=== PATIENT | female | born 1970 | race Caucasian/White ===

== ENCOUNTER 2021-02-05 15:50 | Observation (INO) | payer MEDICAID ==
[2021-02-05] MEDS ORDERED: HYDROmorphone 1 MG/ML CARPUJECT IVP STA ×2 (16:16→19:08)
[2021-02-05] MEDS ORDERED: ONDANSETRON 4 MG/2 ML VIAL IVP STA (16:16)
[2021-02-05] MEDS ORDERED: SODIUM CHLORIDE 0.9% 1,000 ML IV STA (16:16)
[2021-02-05] MEDS ORDERED: IOVERSOL 320 100 ML VIAL IVP ONE ×2 (16:19→21:07)
--- NOTE | 2021-02-05 16:22 | ED Physician Documentation ---
History of Present Illness - Stated complaint Stated Complaint: ABD PX, BACK PX - Chief complaint Chief Complaint: Abd Pain - Additonal information Additional information: 50-year-old female presents the emergency department for evaluation of vomiting and abdominal pain. Began about 48 hours ago when she was traveling back to the [place] from [place]. She reports that she was running through the airports looking for bathrooms to vomit and. Over the last 12 hours the vomiting has improved but she reports labor-like cramping in her upper abdomen. She denies dysuria urgency or frequency. No hematuria. Denies sick contacts or similar illness and others. Denies any pertinent past medical or surgical history. Review of Systems Constitutional: denies: Fever, Chills Eyes: reports: Reviewed and negative Ears: reports: Reviewed and negative Nose: reports: Reviewed and negative Throat: reports: Dental pain / toothache Cardiac: reports: Reviewed and negative Respiratory: reports: Reviewed and negative GI: reports: Abdominal Pain, Nausea, Vomiting. denies: Constipation, Diarrhea : denies: Dysuria, Frequency, Hesitancy Skin: denies: Rash, Lesions Musculoskeletal: reports: Reviewed and negative Neurologic: reports: Reviewed and negative PD PAST MEDICAL HISTORY - Past Medical History Past Medical History: Yes Cardiovascular: None Respiratory: None Neuro: None Endocrine/Autoimmune: None GI: None LOG MANAGER: None HEENT: None Psych: Depression, Anxiety Musculoskeletal: None Derm: None - Past Surgical History Past Surgical History: Yes /LOG MANAGER: Dilation and currettage - Present Medications Home Medications: Ambulatory Orders Medication Instructions Recorded Confirmed PARoxetine HCl [Paxil] 40 mg ORAL DAILY 03/01/14 08/05/16 Amoxicillin 500 mg PO Q8H #30 capsule 08/05/16 Oxycodone HCl/Acetaminophen 1 each PO Q6HR PRN #15 tablet 08/05/16 [Percocet 5-325 mg Tablet] predniSONE [Prednisone] 40 mg PO DAILY #10 tablet 08/05/16 - Allergies Allergies/Adverse Reactions: Allergies Allergy/AdvReac Type Severity Reaction Status Date / Time Sulfa (Sulfonamide Allergy Mild Hives Verified 02/05/21 16:08 Antibiotics) - Social History Does the pt smoke?: Yes Smoking Status: Current every day smoker Does the pt drink ETOH?: Yes Does the pt have substance abuse?: No - Immunizations Immunizations are current?: Yes PD ED PE EXPANDED - General General: Alert, Lethargic - Neck Neck: Supple w/out meningeal sx. No: No tenderness - Cardiac Cardiac: Regular Rate, Radial strong equal, Pedal strong equal, Cap refill < 2 sec. No: Murmur Present - Respiratory Respiratory: Clear to ausultation katharine. No: Distress, Labored - Abdomen Abdomen: Normal Bowel sounds, Tender to palpation (Diffuse nonfocal tenderness without guarding or rebound.) - Derm Derm: Normal color, Warm and dry - Extremities Extremities: Normal. No: Deformity, Tenderness - Neuro Neuro: Alert and Oriented X 3, CNII-XII intact - GCS Eye Opening: Spontaneous Motor: Obeys Commands Verbal: Oriented Total: 15 Results - Vitals Vitals: Vital Signs - 24 hr 02/05/21 02/05/21 02/05/21 16:02 16:07 18:07 Temperature 36.6 C Heart Rate 81 82 84 Respiratory 16 16 16 Rate Blood Pressure 135/83 H 132/76 H 129/77 O2 Saturation 100 100 99 02/05/21 19:27 Temperature 36.1 C L Heart Rate 71 Respiratory 16 Rate Blood Pressure 141/79 H O2 Saturation 98 Oxygen O2 Source Room air - Labs Labs: Laboratory Tests 02/05/21 02/05/21 02/05/21 16:25 16:25 16:25 WBC 12.4 H RBC 5.17 Hgb 14.4 Hct 45.3 MCV 87.6 MCH 27.9 MCHC 31.8 L RDW 14.4 Plt Count 343 MPV 9.1 Neut # (Auto) 9.3 H Lymph # (Auto) 2.0 Benson # (Auto) 1.0 Eos # (Auto) 0.1 Baso # (Auto) 0.1 Absolute Nucleated RBC 0.00 Nucleated RBC % 0.0 Sodium 139 Potassium 3.2 L Chloride 102 Carbon Dioxide 28 Anion Gap 9.0 BUN 19 Creatinine 0.8 Estimated GFR (MDRD) 77 L Glucose 132 H Calcium 9.7 Total Bilirubin 0.9 AST 19 ALT 23 Alkaline Phosphatase 67 Total Protein 8.8 H Albumin 4.4 Globulin 4.4 H Albumin/Globulin Ratio 1.0 Lipase 66 H Urine Color YELLOW Urine Clarity CLEAR Urine pH 6.0 Ur Specific Richardson >=1.030 H Urine Protein TRACE Urine Glucose (UA) NEGATIVE Urine Ketones TRACE Urine Occult Blood SMALL H Urine Nitrite NEGATIVE Urine Bilirubin NEGATIVE Urine Urobilinogen 0.2 (NORMAL) Ur Leukocyte Esterase SMALL H Urine RBC 0-5 Urine WBC 4-5 Ur Squamous Epith Cells FEW Squamous Amorphous Sediment Moderate Urine Bacteria Rare Ur Microscopic Review INDICATED Urine Culture Comments INDICATED - Rads (name of study) abd pel Radiology: Final report received (Lithiasis with possible gallbladder wall thickening. Consider ultrasound correlation.) PD MEDICAL DECISION MAKING - ED course Complexity details: reviewed results, re-evaluated patient, considered differential, d/w patient, d/w family ED course: 50-year-old female presents the emergency department for evaluation of 2 days of nausea and vomiting as well as generalized abdominal pain. She was noted on screening labs to have a moderate leukocytosis but no significant kidney injury or transaminitis. CT of the abdomen suggested cholelithiasis possibly Siobhan cystitis. Bedside abdominal ultrasound did show Siobhan lithiasis with an impacted gallbladder full of stones. There is no biliary obstruction. This patient was initially given Zofran which helped with the nausea and was followed with 2 doses of Dilaudid which did not markedly improve her pain. I d iscussed this case extensively on the phone with on-call surgeon Dr. Juan J Dugan. Patient will be brought into the hospital on an observation status for possible cholecystectomy in the next 24 to 48 hours. Patient and her mother at bedside are aware of the plan and agree to admission. Departure - Departure Disposition: ED Place in Observation Clinical Impression: Cholecystitis with cholelithiasis Qualifiers: Cholelithiasis location: gallbladder Cholecystitis acuity: acute Biliary obstruction: without biliary obstruction Qualified Code(s): K80.00 - Calculus of gallbladder with acute cholecystitis without obstruction
--- OUTSIDE RECORDS SUMMARY | 2021-02-05 16:28 | EXTERNAL MEDICAL SUMMARY RPT | Continuity of Care Document ---
:1970 Demographics Phone Unavailable Preferred Language Unknown Marital Status Unknown Mosque Affiliation Unknown Race Unknown Ethnic Group Unknown Author Organization [facility] Address [address] [place] [address] Phone Allergies Encounters Medications Problems Results
[2021-02-05 16:35] LABS: BASOPHILS # (AUTO) 0.1 10^3/uL (0.0-0.1); BASOPHILS % (AUTO) 0.6 %; EOSINOPHILS # (AUTO) 0.1 10^3/uL (0.0-0.7); EOSINOPHILS % (AUTO) 0.4 %; HCT - HEMATOCRIT 45.3 % (37.0-47.0); HGB - HEMOGLOBIN 14.4 g/dL (12.0-16.0); LYMPHOCYTES % (AUTO) 15.7 %; MEAN CORPUSCULAR HEMOGLOBIN 27.9 pg (27.0-31.0); MEAN CORPUSCULAR HGB CONC 31.8 g/dL (32.0-36.0); MEAN CORPUSCULAR VOLUME 87.6 fL (81.0-99.0); MEAN PLATELET VOLUME 9.1 fL (7.9-10.8); MONOCYTES % (AUTO) 8.4 %; NEUTROPHILS # (AUTO) 9.3 10^3/uL (1.5-6.6); NEUTROPHILS % (AUTO) 74.5 %; PLT - PLATELET COUNT 343 10^3/uL (130-450); RED BLOOD COUNT 5.17 10^6/uL (4.20-5.40); RED CELL DISTRIBUTION WIDTH 14.4 % (12.0-15.0); WHITE BLOOD COUNT 12.4 x10^3/uL (4.8-10.8)
[2021-02-05 16:41] LABS: BILIRUBIN,URINE NEGATIVE (NEGATIVE); CLARITY,URINE CLEAR (CLEAR); GLUCOSE, URINE (UA) NEGATIVE (NEGATIVE); ICTOTEST,URINE NEGATIVE; KETONES,URINE (UA) TRACE mg/dL (NEGATIVE); LEUKOCYTE ESTERASE, URINE SMALL (NEGATIVE); NITRITE,URINE NEGATIVE (NEGATIVE); OCCULT BLOOD,URINE SMALL (NEGATIVE); PROTEIN,URINE TRACE mg/dL (NEGATIVE); UROBILINOGEN,URINE 0.2 (NORMAL) E.U./dL (NORMAL)
[2021-02-05 16:48] LABS: ALBUMIN 4.4 g/dL (3.2-5.5); BILIRUBIN,TOTAL 0.9 mg/dL (0.2-1.0); CALCIUM 9.7 mg/dL (8.5-10.3); CREATININE 0.8 mg/dL (0.4-1.0); POTASSIUM 3.2 mmol/L (3.5-5.0); TOTAL PROTEIN 8.8 g/dL (6.7-8.2)
[2021-02-05 16:52] LABS: AMORPHOUS SEDIMENT,UR Moderate /LPF; BACTERIA,URINE Rare /HPF (None Seen); RBC,URINE 0-5 /HPF (0-5); SQUAMOUS EPITHELIAL CELL,UR FEW Squamous (<= Few)
--- NOTE | 2021-02-05 18:17 | CT Report ---
PROCEDURE: Abdomen/Pelvis W INDICATIONS: upper abdominal pain, vomiting CONTRAST: IV CONTRAST: Optiray 320 ml: 100 PO CONTRAST: *NO PO CONTRAST TECHNIQUE: After the administration of IV and oral contrast, 5 mm thick sections acquired from the diaphragms to the symphysis. 5 mm thick coronal and sagittal reformats were acquired. For radiation dose reducti on, the following was used: automated exposure control, adjustment of mA and/or kV according to morteza ent size. COMPARISON: None FINDINGS: Image quality: Excellent. ABDOMEN: Lung bases: Lung bases are clear. Heart size is normal. Moderate hiatal hernia noted Solid organs: Liver and spleen are normal in size and enhancement. Gallbladder shows a probable katharine iary sludge with low-density dependent calculus present. Possible wall thickening noted. Biliary sys tem is non dilated. Pancreas enhances normally. No adrenal nodules. Kidneys demonstrate normal siz e and enhancement, without hydronephrosis. Subcentimeter right renal cortical cyst. Peritoneum and bowel: Bowel loops demonstrate normal wall thickness and caliber. No free fluid or a ir. Normal appendix identified. Nodes and vessels: No retroperitoneal or mesenteric adenopathy by size criteria. Aorta and inferior vena cava are normal in size. Miscellaneous: No ventral hernias. PELVIS: Genitourinary: Bladder wall thickness is normal. Miscellaneous: No inguinal hernias or adenopathy. Bones: No suspicious bony lesions. No vertebral body compression fractures. IMPRESSION: Cholelithiasis with possible gallbladder wall thickening. Consider ultrasound correlation. Moderate hiatal hernia noted Reviewed by: Иван Rodrigues MD on 02/05/2021 5:16 PM AKDT Approved by: Иван Rodrigues MD on 02/05/2021 5:16 PM AKDT Station ID: [id number]
--- NOTE | 2021-02-05 19:37 | Ultrasound Report ---
PROCEDURE: Abdomen Limited INDICATIONS: ? kathryn TECHNIQUE: Real-time focused scanning was performed of the abdomen, with image documentation. COMPARISON: None FINDINGS: Gallbladder wall is borderline thickened at 3.4 mm with a positive sonographic Reynoso's si gn. Large calculus within the gallbladder neck. Multiple calculi within the gallbladder. IMPRESSION: Cholelithiasis. Findings suggestive of cholecystitis. Clinical correlation recommended. Reviewed by: Andrade Feliciano MD on 02/05/2021 7:36 PM PDT Approved by: Andrade Feliciano MD on 02/05/2021 7:36 PM PDT Station ID: [id number]
[2021-02-05] MEDS ORDERED: PROCHLORPERAZINE 10 MG/2 ML VIAL IVP PRN (20:33)
[2021-02-05] MEDS ORDERED: ONDANSETRON ODT 4 MG TABLET TL PRN (20:33)
[2021-02-05] MEDS ORDERED: ONDANSETRON 4 MG/2 ML VIAL IVP PRN (20:33)
--- NOTE | 2021-02-05 20:42 | HISTORY & PHYSICAL EXAMINATION ---
Chief Complaint - Chief Complaint Chief Complaint: abdominal pain and n/v History of Present Illness - Admitted From Admitted From:: ED - History Obtained From Records Reviewed: yes History obtained from: pt Exam Limitations: none - History of Present Illness HPI Comment/Other: 2 days of band like epigastric pain going to the back and n/v for 1 day. 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 HEENT: reports: None Psych: reports: Depression, Anxiety Musculoskeletal: reports: None Derm: reports: None MRSA Hx?: No - Past Surgical History /CODE ENFORCEMENT SUPERVISOR: reports: Dilation and currettage Meds/Allgy - Home Medications Home Medications: Ambulatory Orders Medication Instructions Recorded Confirmed PARoxetine HCl [Paxil] 40 mg ORAL DAILY 03/01/14 08/05/16 Amoxicillin 500 mg PO Q8H #30 capsule 08/05/16 Oxycodone HCl/Acetaminophen 1 each PO Q6HR PRN #15 tablet 08/05/16 [Percocet 5-325 mg Tablet] predniSONE [Prednisone] 40 mg PO DAILY #10 tablet 08/05/16 - Allergies Allergies/Adverse Reactions: Allergies Allergy/AdvReac Type Severity Reaction Status Date / Time Sulfa (Sulfonamide Allergy Mild Hives Verified 02/05/21 16:08 Antibiotics) Review of Systems - Other Findings Other Findings: 10 pt ros as above otherwise unremarkable Distant breathing troubles needing prednisone. she denies any recent problems Exam - Vital Signs Reviewed Vital Signs: Yes Vital Signs: Vital Signs x48h Temp Pulse Resp BP Pulse Ox 02/05/21 20:13 36.5 C 84 18 110/70 96 02/05/21 19:27 36.1 C L 71 16 141/79 H 98 02/05/21 18:07 84 16 129/77 99 02/05/21 16:07 82 16 132/76 H 100 02/05/21 16:02 36.6 C 81 16 135/83 H 100 - Physical Exam General Appearance: positive: Alert Eyes Bilateral: positive: PERRL, EOMI ENT: positive: No signs of dehydration Neck: positive: No JVD Respiratory: positive: Breath sounds nml Abdomen: positive: Non-tender, No distention Neurologic/Psychiatric: positive: Oriented x3 Conclusion/Plan - Problem List (1) Cholecystitis with cholelithiasis Conclusion/Plan: plan admit for pain and nausea medication antibiotics and surgery parq held and verbal consent obtained OR not available tomorrow am and unfortunately I am not available tomorrow afternoon. If she is much improved tomorrow am she may go home and plan on outpatient elective surgery If she is not improving plan surgery wednesday 02/07 Qualifiers: Cholelithiasis location: gallbladder Cholecystitis acuity: acute Biliary obstruction: without biliary obstruction Qualified Code(s): K80.00 - Calculus of gallbladder with acute cholecystitis without obstruction - Lab Results Fish Bones: 02/05/21 16:25 02/05/21 16:25 - Diagnostic Imaging Results Diagnostic Imaging Results: positive: Read independently
--- OUTSIDE RECORDS SUMMARY | 2021-02-05 21:00 | EXTERNAL MEDICAL SUMMARY RPT | Continuity of Care Document ---
:1970 Demographics Phone Unavailable Preferred Language Unknown Marital Status Unknown Rastafarian Affiliation Unknown Race Unknown Ethnic Group Unknown Author Organization [facility] Address [address] [place] [address] Phone Allergies Encounters Medications Problems Results
[2021-02-05] MEDS: HYDROmorphone 0.5 MG/0.5 ML SYRINGE IVP PRN (21:27)
[2021-02-05] MEDS: FAMOTIDINE 20 MG TABLET PO SCH (21:27)
[2021-02-05] MEDS: SODIUM CHLORIDE FLUSH 0.9% 10 ML SYRINGE IVP PRN (21:27)
[2021-02-05] MEDS: D5.45NS W/20 MEQ KCL 1,000 ML IV SCH (21:27)
[2021-02-05 22:12] LABS: CORONAVIRUS 229E-RESP PCR NOT DETECTED; CORONAVIRUS HKU1-RESP PCR NOT DETECTED; CORONAVIRUS NL63-RESP PCR NOT DETECTED; CORONAVIRUS OC43-RESP PCR NOT DETECTED; HUMAN METAPNEUMOVIRUS NOT DETECTED; INFLUENZA A- RESP PCR PANEL NOT DETECTED; INFLUENZA B - RESP PCR PANEL NOT DETECTED; PARAINFLUENZA VIRUS 1 NOT DETECTED; PARAINFLUENZA VIRUS 2 NOT DETECTED; PARAINFLUENZA VIRUS 3 NOT DETECTED; PARAINFLUENZA VIRUS 4 NOT DETECTED; RHINOVIRUS/ENTEROVIRUS NOT DETECTED; RSV- RESP PCR PANEL NOT DETECTED; SARS-CoV-2 -RESP PCR PANEL NOT DETECTED
[2021-02-05 22:13] LABS: B. PARAPERTUSSIS- RESP PCR PAN NOT DETECTED; B. PERTUSSIS- RESP PCR PANEL NOT DETECTED; C. PNEUMONIAE- RESP PCR PANEL NOT DETECTED; M. PNEUMONIAE- RESP PCR PANEL NOT DETECTED
[2021-02-06] MEDS: AMPICILLIN/SULBACTAM 3 GM in SODIUM CHLORIDE 0.9% MINIBAG 100 ML IV SCH ×5 (00:51→23:44)
[2021-02-06] MEDS: KETOROLAC 15 MG/ML VIAL IVP SCH ×5 (00:54→23:44)
[2021-02-06] MEDS: SODIUM CHLORIDE FLUSH 0.9% 10 ML SYRINGE IVP SCH ×4 (00:54→23:45)
[2021-02-06] MEDS: D5.45NS W/20 MEQ KCL 1,000 ML IV SCH ×3 (06:03→22:20)
[2021-02-06] MEDS: SODIUM CHLORIDE FLUSH 0.9% 10 ML SYRINGE IVP PRN (06:48)
[2021-02-06] MEDS: polyethylene glycoL 3350 17 GM PACKET PO SCH (08:16)
[2021-02-06] MEDS: FAMOTIDINE 20 MG TABLET PO SCH ×2 (08:16→20:58)
[2021-02-06] MEDS: PARoxetine 10 MG TABLET PO SCH (08:16)
--- NOTE | 2021-02-06 12:41 | PHARMACY PROGRESS NOTE ---
- Best Possible Medication History Admit Date and Time: 02/05/212032 Processed by: Pharmacy Medication History completed: Yes Patient Interview: Completed Secondary Source(s): Written medication list (patient interviewed by pharmacy. patient able to confirm home medications ), Physician records, Pharmacy records, Insurance records As the person ultimately responsible for medication therapy, providers are able to order a medication from an existing home medication list in [facility] via the "Reconcile Routine" prior to Confirmation of that medication by family support worker. Such practice is discouraged except when the physician, in their clinical judgment, deems that a medical need exists for a medication without regard to previous use.
[2021-02-06] MEDS: HYDROmorphone 0.5 MG/0.5 ML SYRINGE IVP PRN ×2 (15:34→22:15)
--- NOTE | 2021-02-06 16:30 | PROVIDER PROGRESS NOTE ---
Subjective - Prog Note Date Prog Note Date: 02/06/21 - Subjective Subjective: mildly improved. still uncomfortable and little appetite Objective - Vital Signs/Intake & Output Reviewed Vital Signs: Yes Vital Signs: Vital Signs x48h Temp Pulse Resp BP BP Pulse Ox 02/06/21 15:30 37.4 C 62 16 102/57 L 100 02/06/21 12:40 36.9 C 69 16 105/64 99 Intake & Output: Intake & Output 02/03/21 02/04/21 02/05/21 02/06/21 23:59 23:59 23:59 23:59 Intake Total 1300 2400.000 Output Total 950 Balance 1300 1450.000 - Objective General Appearance: positive: No acute distress, Alert Eyes Bilateral: positive: PERRL, EOMI, No scleral icterus ENT: positive: No signs of dehydration Neck: positive: No JVD Respiratory: positive: No respiratory distress Abdomen: positive: No distention Neurologic/Psychiatric: positive: Oriented x3 - Lab Results Fish Bones: 02/05/21 16:25 02/05/21 16:25 Other Labs: Lab Results x24hrs 02/05/21 02/05/21 02/05/21 Range/Units 20:54 16:25 16:25 WBC (4.8-10.8) x10^3/uL RBC (4.20-5.40) 10^6/uL Hgb (12.0-16.0) g/dL Hct (37.0-47.0) % MCV (81.0-99.0) fL MCH (27.0-31.0) pg MCHC (32.0-36.0) g/dL RDW (12.0-15.0) % Plt Count (130-450) 10^3/uL MPV (7.9-10.8) fL Neut # (Auto) (1.5-6.6) 10^3/uL Lymph # (Auto) (1.5-3.5) 10^3/uL Cla[place]orne # (Auto) (0.0-1.0) 10^3/uL Eos # (Auto) (0.0-0.7) 10^3/uL Baso # (Auto) (0.0-0.1) 10^3/uL Absolute Nucleated RBC x10^3/uL Nucleated RBC % /100WBC Sodium 139 (135-145) mmol/L Potassium 3.2 L (3.5-5.0) mmol/L Chloride 102 (101-111) mmol/L Carbon Dioxide 28 (21-32) mmol/L Anion Gap 9.0 (6-13) BUN 19 (6-20) mg/dL Creatinine 0.8 (0.4-1.0) mg/dL Estimated GFR (MDRD) 77 L (>89) Glucose 132 H (70-100) mg/dL Calcium 9.7 (8.5-10.3) mg/dL Total Bilirubin 0.9 (0.2-1.0) mg/dL AST 19 (10-42) IU/L ALT 23 (10-60) IU/L Alkaline Phosphatase 67 (42-121) IU/L Total Protein 8.8 H (6.7-8.2) g/dL Albumin 4.4 (3.2-5.5) g/dL Globulin 4.4 H (2.1-4.2) g/dL Albumin/Globulin Ratio 1.0 (1.0-2.2) Lipase 66 H (22-51) U/L Urine Color YELLOW Urine Clarity CLEAR (CLEAR) Urine pH 6.0 (5.0-7.5) PH Ur Specific [place] >=1.030 H (1.002-1.030) Urine Protein TRACE (NEGATIVE) mg/dL Urine Glucose (UA) NEGATIVE (NEGATIVE) mg/dL Urine Ketones TRACE (NEGATIVE) mg/dL Urine Occult Blood SMALL H (NEGATIVE) Urine Nitrite NEGATIVE (NEGATIVE) Urine Bilirubin NEGATIVE (NEGATIVE) Urine Urobilinogen 0.2 (NORMAL) (NORMAL) E.U./dL Ur Leukocyte Esterase SMALL H (NEGATIVE) Urine RBC 0-5 (0-5) /HPF Urine WBC 4-5 (0-5) /HPF Ur Squamous Epith Cells FEW Squamous (<= Few) Amorphous Sediment Moderate /LPF Urine Bacteria Rare (None Seen) /HPF Ur Microscopic Review INDICATED Urine Culture Comments INDICATED Nasal Adenovirus (PCR) NOT DETECTED Nasal B. parapertussis DNA (PCR) NOT DETECTED Nasal Coronavir 229E PCR NOT DETECTED Nasal Coronavir HKU1 PCR NOT DETECTED Nasal Coronavir NL63 PCR NOT DETECTED Nasal Coronavir OC43 PCR NOT DETECTED Nasal Enterovir/Rhinovir PCR NOT DETECTED Nasal Influenza B PCR NOT DETECTED Nasal Influenza A PCR NOT DETECTED Nasal Parainfluen 1 PCR NOT DETECTED Nasal Parainfluen 2 PCR NOT DETECTED Nasal Parainfluen 3 PCR NOT DETECTED Nasal Parainfluen 4 PCR NOT DETECTED Nasal RSV (PCR) NOT DETECTED Nasal B.pertussis DNA PCR NOT DETECTED Nasal C.pneumoniae (PCR) NOT DETECTED Remberto Human Metapneumo PCR NOT DETECTED Nasal M.pneumoniae (PCR) NOT DETECTED Nasal SARS-CoV-2 (PCR) NOT DETECTED 02/05/21 Range/Units 16:25 WBC 12.4 H (4.8-10.8) x10^3/uL RBC 5.17 (4.20-5.40) 10^6/uL Hgb 14.4 (12.0-16.0) g/dL Hct 45.3 (37.0-47.0) % MCV 87.6 (81.0-99.0) fL MCH 27.9 (27.0-31.0) pg MCHC 31.8 L (32.0-36.0) g/dL RDW 14.4 (12.0-15.0) % Plt Count 343 (130-450) 10^3/uL MPV 9.1 (7.9-10.8) fL Neut # (Auto) 9.3 H (1.5-6.6) 10^3/uL Lymph # (Auto) 2.0 (1.5-3.5) 10^3/uL Cla[place]orne # (Auto) 1.0 (0.0-1.0) 10^3/uL Eos # (Auto) 0.1 (0.0-0.7) 10^3/uL Baso # (Auto) 0.1 (0.0-0.1) 10^3/uL Absolute Nucleated RBC 0.00 x10^3/uL Nucleated RBC % 0.0 /100WBC Sodium (135-145) mmol/L Potassium (3.5-5.0) mmol/L Chloride (101-111) mmol/L Carbon Dioxide (21-32) mmol/L Anion Gap (6-13) BUN (6-20) mg/dL Creatinine (0.4-1.0) mg/dL Estimated GFR (MDRD) (>89) Glucose (70-100) mg/dL Calcium (8.5-10.3) mg/dL Total Bilirubin (0.2-1.0) mg/dL AST (10-42) IU/L ALT (10-60) IU/L Alkaline Phosphatase (42-121) IU/L Total Protein (6.7-8.2) g/dL Albumin (3.2-5.5) g/dL Globulin (2.1-4.2) g/dL Albumin/Globulin Ratio (1.0-2.2) Lipase (22-51) U/L Urine Color Urine Clarity (CLEAR) Urine pH (5.0-7.5) PH Ur Specific [place] (1.002-1.030) Urine Protein (NEGATIVE) mg/dL Urine Glucose (UA) (NEGATIVE) mg/dL Urine Ketones (NEGATIVE) mg/dL Urine Occult Blood (NEGATIVE) Urine Nitrite (NEGATIVE) Urine Bilirubin (NEGATIVE) Urine Urobilinogen (NORMAL) E.U./dL Ur Leukocyte Esterase (NEGATIVE) Urine RBC (0-5) /HPF Urine WBC (0-5) /HPF Ur Squamous Epith Cells (<= Few) Amorphous Sediment /LPF Urine Bacteria (None Seen) /HPF Ur Microscopic Review Urine Culture Comments Nasal Adenovirus (PCR) Nasal B. parapertussis DNA (PCR) Nasal Coronavir 229E PCR Nasal Coronavir HKU1 PCR Nasal Coronavir NL63 PCR Nasal Coronavir OC43 PCR Nasal Enterovir/Rhinovir PCR Nasal Influenza B PCR Nasal Influenza A PCR Nasal Parainfluen 1 PCR Nasal Parainfluen 2 PCR Nasal Parainfluen 3 PCR Nasal Parainfluen 4 PCR Nasal RSV (PCR) Nasal B.pertussis DNA PCR Nasal C.pneumoniae (PCR) Remberto Human Metapneumo PCR Nasal M.pneumoniae (PCR) Nasal SARS-CoV-2 (PCR) Assessment/Plan - Problem List (1) Cholecystitis with cholelithiasis Impression: plan surgery tomorrow. Qualifiers: Cholelithiasis location: gallbladder Cholecystitis acuity: acute Biliary obstruction: without biliary obstruction Qualified Code(s): K80.00 - Calculus of gallbladder with acute cholecystitis without obstruction
[2021-02-06] MEDS: SENNA 8.6 MG TABLET PO SCH (20:58)
[2021-02-06] MEDS: DOCUSATE SODIUM 250 MG CAPSULE PO SCH (20:59)
[2021-02-07] MEDS: AMPICILLIN/SULBACTAM 3 GM in SODIUM CHLORIDE 0.9% MINIBAG 100 ML IV SCH ×4 (06:15→23:41)
[2021-02-07] MEDS: KETOROLAC 15 MG/ML VIAL IVP SCH ×4 (06:15→23:40)
[2021-02-07] MEDS: polyethylene glycoL 3350 17 GM PACKET PO SCH (08:39)
[2021-02-07] MEDS: SENNA 8.6 MG TABLET PO SCH (08:40)
[2021-02-07] MEDS: DOCUSATE SODIUM 250 MG CAPSULE PO SCH (08:40)
[2021-02-07] MEDS: FAMOTIDINE 20 MG TABLET PO SCH ×2 (08:40→20:50)
[2021-02-07] MEDS: PARoxetine 10 MG TABLET PO SCH (08:41)
[2021-02-07] MEDS: D5.45NS W/20 MEQ KCL 1,000 ML IV SCH ×2 (08:45→23:41)
--- NOTE | 2021-02-07 09:33 | ANESTHESIA ---
Pre-Anesthesia VS, & Labs - Diagnosis cholecystitis, cholithiasis without obstruction - Procedure laparoscopic cholecystectomy Vital Signs: Temp Pulse Resp BP Pulse Ox 36.8 C 61 17 102/61 100 02/07/21 08:00 02/07/21 08:00 02/07/21 08:00 02/07/21 08:00 02/07/21 08:00 Height: 5 ft 3 in Weight (kg): 81.5 kg Body Mass Index: 31.8 BMI Classification: Obese - NPO >8 hours - Is Patient ?: No - Lab Results Current Lab Results: Laboratory Tests 02/05/21 16:25: Sodium 139, Potassium 3.2 L, Chloride 102, Carbon Dioxide 28, Anion Gap 9.0, BUN 19, Creatinine 0.8, Estimated GFR (MDRD) 77 L, Glucose 132 H, Calcium 9.7, Total Bilirubin 0.9, AST 19, ALT 23, Alkaline Phosphatase 67, Total Protein 8.8 H, Albumin 4.4, Globulin 4.4 H, Albumin/Globulin Ratio 1.0, Lipase 66 H 02/05/21 16:25: WBC 12.4 H, RBC 5.17, Hgb 14.4, Hct 45.3, MCV 87.6, MCH 27.9, MCHC 31.8 L, RDW 14.4, Plt Count 343, MPV 9.1, Neut # (Auto) 9.3 H, Lymph # (Auto) 2.0, Baxter # (Auto) 1.0, Eos # (Auto) 0.1, Baso # (Auto) 0.1, Absolute Nucleated RBC 0.00, Nucleated RBC % 0.0 Fish Bones: 02/05/21 16:25 02/05/21 16:25 Home Medications and Allergies Home Medications: Ambulatory Orders PARoxetine HCl [Paxil] 40 mg PO DAILY 02/06/21 Active Medications Docusate Sodium (Docusate Sodium 250 Mg Capsule) 250 - 500 mg PO DAILY [facility] Last Admin: 02/07/21 08:40 Dose: 250 mg Documented by: Famotidine (Famotidine 20 Mg Tablet) 20 mg PO BID [facility] Last Admin: 02/07/21 08:40 Dose: 20 mg Documented by: Hydromorphone HCl (Hydromorphone 0.5 Mg/0.5 Ml Syringe) 0.5 mg IVP Q2H PRN PRN Reason: Pain 8 to 10 Last Admin: 02/06/21 22:15 Dose: 0.5 mg Documented by: Potassium Chloride/Dextrose/Sod Cl (D5.45ns W/20 Meq Kcl) 1,000 mls @ 125 mls/hr IV .Q8H [facility] Last Admin: 02/07/21 08:45 Dose: 125 mls/hr Documented by: Ampicillin Sodium/Sulbactam (Sodium 3 gm/ Sodium Chloride) 100 mls @ 200 mls/hr IV Q6HR [facility] Last Infusion: 02/07/21 06:45 Dose: Infused Documented by: Ketorolac Tromethamine (Ketorolac 15 Mg/Ml Vial) 15 mg IVP Q6HR [facility] Stop: 02/11/21 00:00 Last Admin: 02/07/21 06:15 Dose: 15 mg Documented by: Ondansetron HCl (Ondansetron Odt 4 Mg Tablet) 4 mg TL Q6HR PRN PRN Reason: Nausea / Vomiting Ondansetron HCl (Ondansetron 4 Mg/2 Ml Vial) 4 mg IVP Q6HR PRN PRN Reason: Nausea / Vomiting Last Admin: 02/06/21 09:12 Dose: 4 mg Documented by: Paroxetine HCl (Paroxetine 10 Mg Tablet) 40 mg PO DAILY [facility] Last Admin: 02/07/21 08:41 Dose: 40 mg Documented by: Polyethylene Glycol (Polyethylene Glycol 3350 17 Gm Packet) 17 gm PO DAILY [facility] Last Admin: 02/07/21 08:39 Dose: 17 gm Documented by: Prochlorperazine Edisylate (Prochlorperazine 10 Mg/2 Ml Vial) 10 mg IVP Q6HR PRN PRN Reason: Nausea / Vomiting Senna (Senna 8.6 Mg Tablet) 8.6 - 17.2 mg PO DAILY [facility] Last Admin: 02/07/21 08:40 Dose: 8.6 mg Documented by: Sodium Chloride (Sodium Chloride Flush 0.9% 10 Ml Syringe) 10 ml IVP PRN PRN PRN Reason: NEEDED PER PROVIDER ORDERS Last Admin: 02/06/21 06:48 Dose: 10 ml Documented by: Sodium Chloride (Sodium Chloride Flush 0.9% 10 Ml Syringe) 10 ml IVP 0100,0900,1700 [facility] Last Admin: 02/06/21 23:45 Dose: 10 ml Documented by: PARoxetine HCl [Paxil] 40 mg PO DAILY 02/06/21 Allergies/Adverse Reactions: Allergies Allergy/AdvReac Type Severity Reaction Status Date / Time Sulfa (Sulfonamide Allergy Mild Hives Verified 02/05/21 16:08 Antibiotics) Anes History & Medical History - Anesthetic History Anesthesia Complications: reports: No previous complications - Medical History Cardiovascular: reports: None Pulmonary: reports: None Gastrointestinal: reports: None Neuro: reports: None Musculoskeletal: reports: None Endocrine/Autoimmune: reports: None Blood Disorders: reports: None Skin: reports: None Smoking Status: Former smoker - Surgical History Gynecologic: reports: Dilation and currettage Exam General: Alert Dental: WNL Mouth Opening: Greater than 4 Fingerbreadths Mallampati classification: II Thyromental Distance: greater than 6 cm Respiratory: Lungs clear Cardiovascular: Regular rate, Normal S1, Normal S2 Plan Anesthesia Type: General Consent for Procedure(s) Verified and Reviewed: Yes Code Status: Attempt Resuscitation ASA classification: 2-Mild systemic disease Is this case an emergency?: No
[2021-02-07] MEDS: SODIUM CHLORIDE FLUSH 0.9% 10 ML SYRINGE IVP SCH ×3 (10:02→23:46)
[2021-02-07] MEDS ORDERED: BUPIVACAINE 0.25% PF 30 ML VIAL ONE (11:23)
[2021-02-07] MEDS ORDERED: fentaNYL 100 MCG/2 ML VIAL ONE ×2 (11:28→14:45)
[2021-02-07] MEDS ORDERED: MIDAZOLAM 2 MG/2 ML VIAL ONE (11:28)
[2021-02-07] MEDS ORDERED: PROPOFOL 200 MG/20 ML VIAL IVP ONE (11:29)
[2021-02-07] MEDS ORDERED: LIDOCAINE-MPF 2% 5 ML VIAL ONE (11:29)
[2021-02-07] MEDS ORDERED: ONDANSETRON 4 MG/2 ML VIAL ONE (12:40)
[2021-02-07] MEDS ORDERED: DEXAMETHASONE 4 MG/ML VIAL ONE (12:40)
[2021-02-07] MEDS ORDERED: ACETAMINOPHEN 1,000 MG/100 ML 100 ML IV ONE (12:40)
[2021-02-07] MEDS ORDERED: BUPIVACAINE 0.25% PF 30 ML VIAL SUBQ ONE ×2 (12:43→13:57)
[2021-02-07] MEDS ORDERED: NALOXONE 0.4 MG/ML VIAL IVP PRN (13:02)
[2021-02-07] MEDS ORDERED: HYDROmorphone 0.5 MG/0.5 ML SYRINGE IVP PRN (13:02)
[2021-02-07] MEDS ORDERED: METOCLOPRAMIDE 10 MG/2 ML VIAL IVP PRN (13:02)
[2021-02-07] MEDS ORDERED: ePHEDrine 50 MG/ML VIAL IVP PRN (13:02)
[2021-02-07] MEDS ORDERED: ONDANSETRON 4 MG/2 ML VIAL IVP PRN ×2 (13:02→14:42)
[2021-02-07] MEDS ORDERED: MORPHINE 2 MG/ML CARPUJECT IVP PRN (13:02)
[2021-02-07] MEDS ORDERED: ATROPINE ABBOJECT 1 MG/10 ML SYRINGE IVP PRN (13:02)
[2021-02-07] MEDS ORDERED: ROCURONIUM 50 MG/5 ML VIAL ONE (13:27)
[2021-02-07] MEDS ORDERED: SEVOFLURANE 250 ML LIQUID INH ONE (13:30)
[2021-02-07] MEDS ORDERED: LACTATED RINGERS 1,000 ML IV SCH (14:00)
[2021-02-07] MEDS ORDERED: SUGAMMADEX 200 MG/2 ML VIAL IVP ONE (14:01)
--- NOTE | 2021-02-07 14:40 | OPERATIVE REPORT ---
Operative Report - General Admit Date: 02/05/21 Procedure Date: 02/07/21 Planned Procedure: lap kathryn Pre-Op Diagnosis: cholecystitis Procedure Performed: lap kathryn Post Op Diagnosis: cholecystitis - Procedure Note Primary Surgeon: elfego king Anesthesia Technique: General ET tube, Local Pathology: gb Estimated Blood Loss (mL): 25 Drain/Tube Type: Other (none) Indications: cholecystitis Findings: cholecystitis Complications: none
[2021-02-07] MEDS: fentaNYL 100 MCG/2 ML VIAL IVP PRN ×2 (14:42→14:56)
[2021-02-07] MEDS ORDERED: LACTATED RINGERS 1,000 ML IV ONE (14:48)
--- NOTE | 2021-02-07 15:10 | ANESTHESIA POST OP EVALUATION ---
Anesthesia Post Eval - Post Anesthesia Eval Vitals: Last Vital Signs Temp 36.6 C 02/07/21 15:05 Pulse 74 02/07/21 15:05 Resp 17 02/07/21 15:05 BP 117/68 02/07/21 15:05 Pulse Ox 93 02/07/21 15:05 CV Function Including HR & BP: Stable Pain Control: Satisfactory Nausea & Vomiting: Negative Mental Status: Baseline Respiratory Status: Airway Patent Hydration Status: Satisfactory Anesthesia Complications: None
[2021-02-07] MEDS: HYDROmorphone 0.5 MG/0.5 ML SYRINGE IVP PRN ×3 (16:12→23:40)
--- NOTE | 2021-02-07 16:45 | Discharge Plan ---
Discharge Plan Problem Reviewed?: Yes Disposition: Home, Self Care Condition: Good Prescriptions: HYDROcod/ACETAM 5/325 [Randolph 5/325] 1 each PO Q6H PRN #30 tablet PRN Reason: Pain Ondansetron Odt [Zofran Odt] 4 mg PO Q6H PRN #15 tablet PRN Reason: Nausea / Vomiting Diet: Regular Activity Restrictions: No Restrictions Shower Restrictions: No Driving Restrictions: No Additional Instructions or Follow Up instructions: call the office with any concerns and to make a follow up appointment [phone] No Smoking: If you smoke, Please STOP! Call for help. Follow-up with: Gifty Choe ARNP [Primary Care Provider] -
--- NOTE | 2021-02-07 16:48 | DISCHARGE SUMMARY ---
"Discharge Summary Admit Date: 02/05/21 Discharge Date: 02/08/21 Discharging Provider: elfego king Code Status: Attempt Resuscitation - DIAGNOSES Admission Diagnoses: cholecystitis Discharge Diagnoses with Status of Each Condition: home in good condition - HPI History of Present Illness: Acute cholecystitis with significant abdominal pain and nausea and vomiting - CONSULTS | PROCEDURES Procedures: lap kathryn 02/07/2021 - ALLERGIES Allergies/Adverse Reactions: Allergies Allergy/AdvReac Type Severity Reaction Status Date / Time Sulfa (Sulfonamide Allergy Mild Hives Verified 02/05/21 16:08 Antibiotics) - MEDICATIONS Home Medications: Ambulatory Orders Medication Instructions Recorded Confirmed PARoxetine HCl [Paxil] 40 mg PO DAILY 02/06/21 02/06/21 HYDROcod/ACETAM 5/325 [Pearcy 5/325] 1 each PO Q6H PRN #30 tablet 02/07/21 Ondansetron Odt [Zofran Odt] 4 mg PO Q6H PRN #15 tablet 02/07/21 - PHYSICAL EXAM AT DISCHARGE General Appearance: positive: No acute distress Eyes Bilateral: positive: PERRL, EOMI ENT: positive: No signs of dehydration Neck: positive: No JVD Respiratory: positive: No respiratory distress Cardiovascular: positive: Regular rate & rhythm Abdomen: positive: Other (normal postop) Neurologic/Psychiatric: positive: Oriented x3 - LABS Result Diagrams: 02/05/21 16:25 02/05/21 16:25 - FOLLOW UP Follow Up: surgery [id number]"
[2021-02-07] MEDS: HYDROcod/ACETAM 5/325 MG TABLET PO PRN (20:50)
[2021-02-08] MEDS: KETOROLAC 15 MG/ML VIAL IVP SCH ×2 (05:30→11:39)
[2021-02-08] MEDS: SODIUM CHLORIDE FLUSH 0.9% 10 ML SYRINGE IVP PRN ×2 (05:30→10:30)
[2021-02-08] MEDS: AMPICILLIN/SULBACTAM 3 GM in SODIUM CHLORIDE 0.9% MINIBAG 100 ML IV SCH ×2 (05:30→11:39)
[2021-02-08] MEDS: D5.45NS W/20 MEQ KCL 1,000 ML IV SCH (07:29)
[2021-02-08] MEDS: HYDROmorphone 0.5 MG/0.5 ML SYRINGE IVP PRN ×2 (07:41→10:29)
[2021-02-08 08:20] VITALS: BP 105/55
[2021-02-08] MEDS: SENNA 8.6 MG TABLET PO SCH (08:41)
[2021-02-08] MEDS: HYDROcod/ACETAM 5/325 MG TABLET PO PRN ×2 (08:41→13:13)
[2021-02-08] MEDS: PARoxetine 10 MG TABLET PO SCH (08:41)
[2021-02-08] MEDS: DOCUSATE SODIUM 250 MG CAPSULE PO SCH (08:41)
[2021-02-08] MEDS: FAMOTIDINE 20 MG TABLET PO SCH (08:41)
[2021-02-08] MEDS: SODIUM CHLORIDE FLUSH 0.9% 10 ML SYRINGE IVP SCH (08:42)
[2021-02-08] MEDS: polyethylene glycoL 3350 17 GM PACKET PO SCH (09:12)
--- NOTE | 2021-02-28 15:25 | OPERATIVE REPORT ---
Operative Report - General Admit Date: 02/05/21 Procedure Date: 03/10/21 - Other Other Information/Narrative: The patient was properly identified, brought to the operating room and placed in supine position. Sequential compression devices were placed. General endotracheal anesthesia was induced. The patient was prepped and draped in a sterile fashion and given preoperative antibiotics. Local anesthetic was given to incision areas. An incision was made in the periumbilical area. Dissection proceeded down to fascia. The fascia was incised lifted upwards and abdomen entered with a Veress needle. CO2 was insufflated to a pressure of 15. An 11 mm trocar followed by a 30 degree scope was placed. There was no evidence of injury from Veress needle or trocar placement. Under direct vision 2 5 mm trochars were placed in the right upper quadrant and an 11 mm trocar was placed in the epigastrium. Body of the gallbladder was retracted anterior. Lateral attachments were partially taken down further mobilizing the gallbladder more anterior and away from the duodenum. The infundibulum of the gallbladder was then retracted right lateral and caudad. With minimal use of cautery a large bare cystic plate area or window was carefully created. The cystic duct was inspected from right lateral and left lateral positions. The cystic duct was then clipped at the gallbladder and 3 times slightly proximal and sharply divided. The cystic artery was clipped at the gallbladder and then 2 times slightly proximal and sharply divided. The gallbladder was mobilized off from the bed of the liver with hook cautery. The gallbladder was placed in Endo Catch bag and brought out through the epigastric trocar site. Hemostasis was assured. Trochars were removed under direct vision. Fascia at the larger trocar sites was closed with [id number] are running 0 Vicryl suture. Subcutaneous tissue was irrigated and skin closed with interrupted 4-0 Monocryl. Dressings were applied. Patient tolerated the procedure well was awakened and brought to recovery in good condition.
== END 2021-02-08 13:15 | disposition home or self-care (01) ==
LOC: ED 15:50 → MS2 20:33
PROVIDERS: ADMIT Surgery; ATTEND Surgery
PROC: 0FT44ZZ Resection of Gallbladder, Percutaneous Endoscopic Approach (ICD-10-PCS; principal; 2021-02-05)
DX: K80.12 Calculus of gallbladder with acute and chronic cholecystitis without obstruction (principal); F17.200 Nicotine dependence, unspecified, uncomplicated; E66.9 Obesity, unspecified; Z68.31 Body mass index [BMI] 31.0-31.9, adult
CPT/HCPCS: 0202U; 36415; 47562; 74177; 76705; 80053; 81001; 83690; 85025; 87086; 96365; 96366; 96368; 96375; 96376; 99284; 99285; A9270; G0378; J0131; J1170; J3490; J7120; Q9967; 81003

== ENCOUNTER 2022-01-28 16:19 | Outpatient (CLI) | payer MEDICAID ==
[2022-01-28 19:49] LABS: BASOPHILS # (AUTO) 0.1 10^3/uL (0.0-0.1); BASOPHILS % (AUTO) 1.1 %; EOSINOPHILS # (AUTO) 0.2 10^3/uL (0.0-0.7); EOSINOPHILS % (AUTO) 2.4 %; HCT - HEMATOCRIT 37.4 % (37.0-47.0); HGB - HEMOGLOBIN 11.7 g/dL (12.0-16.0); LYMPHOCYTES # (AUTO) 2.2 10^3/uL (1.5-3.5); LYMPHOCYTES % (AUTO) 34.6 %; MEAN CORPUSCULAR HEMOGLOBIN 25.7 pg (27.0-31.0); MEAN CORPUSCULAR HGB CONC 31.3 g/dL (32.0-36.0); MONOCYTES # (AUTO) 0.6 10^3/uL (0.0-1.0); MONOCYTES % (AUTO) 9.9 %; NEUTROPHILS # (AUTO) 3.3 10^3/uL (1.5-6.6); NEUTROPHILS % (AUTO) 51.8 %; PLT - PLATELET COUNT 309 10^3/uL (130-450); RED BLOOD COUNT 4.56 10^6/uL (4.20-5.40); RED CELL DISTRIBUTION WIDTH 14.4 % (12.0-15.0); WHITE BLOOD COUNT 6.3 x10^3/uL (4.8-10.8)
[2022-01-28 20:06] LABS: ALBUMIN 3.7 g/dL (3.2-5.5); BILIRUBIN,TOTAL 0.3 mg/dL (0.2-1.0); CALCIUM 8.8 mg/dL (8.5-10.3); CREATININE 0.6 mg/dL (0.4-1.0); POTASSIUM 3.4 mmol/L (3.5-5.0); TOTAL PROTEIN 7.3 g/dL (6.7-8.2)
== END 2022-01-28 16:20 | disposition home or self-care (01) ==
LOC: LAB.S 16:19
PROVIDERS: ATTEND Physician Assistant Medical
DX: F41.8 Other specified anxiety disorders (principal)
CPT/HCPCS: 36415; 80053; 85025

== ENCOUNTER 2023-04-16 08:21 | Outpatient (CLI) | payer MEDICAID ==
[2023-04-16 12:46] LABS: BASOPHILS # (AUTO) 0.1 10^3/uL (0.0-0.1); BASOPHILS % (AUTO) 1.3 %; EOSINOPHILS # (AUTO) 0.3 10^3/uL (0.0-0.7); EOSINOPHILS % (AUTO) 4.1 %; HCT - HEMATOCRIT 38.7 % (37.0-47.0); HGB - HEMOGLOBIN 11.8 g/dL (12.0-16.0); LYMPHOCYTES # (AUTO) 1.7 10^3/uL (1.5-3.5); LYMPHOCYTES % (AUTO) 27.7 %; MEAN CORPUSCULAR HEMOGLOBIN 25.4 pg (27.0-31.0); MEAN CORPUSCULAR HGB CONC 30.5 g/dL (32.0-36.0); MEAN CORPUSCULAR VOLUME 83.4 fL (81.0-99.0); MEAN PLATELET VOLUME 9.5 fL (7.9-10.8); MONOCYTES # (AUTO) 0.7 10^3/uL (0.0-1.0); MONOCYTES % (AUTO) 11.1 %; NEUTROPHILS # (AUTO) 3.4 10^3/uL (1.5-6.6); NEUTROPHILS % (AUTO) 55.6 %; PLT - PLATELET COUNT 359 10^3/uL (130-450); RED BLOOD COUNT 4.64 10^6/uL (4.20-5.40); RED CELL DISTRIBUTION WIDTH 15.3 % (12.0-15.0); WHITE BLOOD COUNT 6.1 x10^3/uL (4.8-10.8)
[2023-04-16 13:31] LABS: ALBUMIN 3.8 g/dL (3.2-5.5); ALBUMIN/GLOBULIN RATIO 1.2 (1.0-2.2); ALKALINE PHOSPHATASE 73 IU/L (42-121); ALT ALANINE AMINOTRANSFERASE 12 IU/L (10-60); AST ASPARTATE AMINOTRANSFERASE 13 IU/L (10-42); BILIRUBIN,TOTAL 0.3 mg/dL (0.2-1.0); BUN - BLOOD UREA NITROGEN 17 mg/dL (6-20); CALCIUM 9.3 mg/dL (8.5-10.3); CARBON DIOXIDE - CO2 29 mmol/L (21-32); CHLORIDE 104 mmol/L (101-111); CHOL/HDL RATIO 4.5 (<4.4); CHOLESTEROL 179 mg/dL; CREATININE 0.8 mg/dL (0.6-1.3); GFR - MDRD 76 (>89); GLUCOSE 99 mg/dL (74-104); HDL CHOLESTEROL 40 mg/dL; LDL CHOLESTEROL,CALCULATED 120 mg/dL; POTASSIUM 3.9 mmol/L (3.5-4.5); SODIUM 137 mmol/L (135-145); TOTAL PROTEIN 6.9 g/dL (6.4-8.9); TRIGLYCERIDES 97 mg/dL (48-352); VLDL CHOLESTEROL 19 mg/dL
[2023-04-16 13:33] LABS: THYROID STIMULATING HORMONE 0.14 uIU/mL (0.34-5.60)
== END 2023-04-16 08:22 | disposition home or self-care (01) ==
LOC: LAB.N 08:21
PROVIDERS: ATTEND Registered Nurse
DX: Z79.899 Other long term (current) drug therapy (principal); Z13.220 Encounter for screening for lipoid disorders; Z13.29 Encounter for screening for other suspected endocrine disorder; Z13.0 Encounter for screening for diseases of the blood and blood-forming organs and certain disorders involving the immune mechanism
CPT/HCPCS: 36415; 80053; 80061; 83721; 84439; 84443; 85025

== ENCOUNTER 2024-02-23 07:25 | Day surgery (SDC) | payer MEDICAID ==
[2024-02-23] MEDS: LACTATED RINGERS 1,000 ML IV ONE ×2 (07:33→09:40)
[2024-02-23 07:46] LABS: HCG UR QUAL NEGATIVE
--- NOTE | 2024-02-23 08:03 | ANESTHESIA ---
Pre-Anesthesia VS, & Labs - Diagnosis GERD, screening exam - Procedure EGD and colonoscopy Vital Signs: Temp Pulse Resp BP Pulse Ox O2 Flow Rate 36.0 C L 62 17 115/66 97 02/23/24 07:43 02/23/24 07:43 02/23/24 07:43 02/23/24 07:43 02/23/24 07:43 Height: 5 ft 2 in Weight (kg): 91 kg Body Mass Index: 36.6 BMI Classification: Obese - NPO >8 hours - Is Patient ?: No Home Medications and Allergies PARoxetine HCL [Paxil] 20 mg PO DAILY 02/06/21 Allergies/Adverse Reactions: Allergies Allergy/AdvReac Type Severity Reaction Status Date / Time Sulfa (Sulfonamide Allergy Mild Hives Verified 02/23/24 08:00 Antibiotics) Anes History & Medical History - Anesthetic History Anesthesia Complications: reports: No previous complications - Medical History Cardiovascular: reports: None Pulmonary: reports: None Gastrointestinal: reports: GERD Urinary: reports: None Neuro: reports: Migraines Musculoskeletal: reports: None Endocrine/Autoimmune: reports: None Blood Disorders: reports: None Skin: reports: None Smoking Status: Former smoker Psychosocial: reports: No issues indicated History of Cancer?: No - Surgical History General: reports: Cholecystectomy Eyes Ears Nose Throat (EENT): reports: Tonsil/Adenoidectomy Gynecologic: reports: Dilation and currettage Exam General: Alert, Oriented x3, Cooperative, No acute distress Dental: WNL Mouth Openin Fingerbreadth Neck Mobility: Normal Mallampati classification: II Thyromental Distance: 4-6 cm Mental/Cognitive Status: Alert/Oriented X3, Normal for patient Plan Anesthesia Type: General, Total IV Consent for Procedure(s) Verified and Reviewed: Yes Code Status: Attempt Resuscitation ASA classification: 2-Mild systemic disease Is this case an emergency?: No
[2024-02-23 09:53] VITALS: BP 104/63; O2SAT 95
== END 2024-02-23 07:26 | disposition home or self-care (01) ==
LOC: SDS 07:25
PROVIDERS: ATTEND Surgery
PROC: 0DB78ZX Excision of Stomach, Pylorus, Via Natural or Artificial Opening Endoscopic, Diagnostic (ICD-10-PCS; 2024-02-23)
PROC: 0DJD8ZZ Inspection of Lower Intestinal Tract, Via Natural or Artificial Opening Endoscopic (ICD-10-PCS; principal; 2024-02-23 08:30)
PROC: 0DB48ZX Excision of Esophagogastric Junction, Via Natural or Artificial Opening Endoscopic, Diagnostic (ICD-10-PCS; 2024-02-23 08:30)
DX: Z12.11 Encounter for screening for malignant neoplasm of colon (principal); K57.30 Diverticulosis of large intestine without perforation or abscess without bleeding; K21.9 Gastro-esophageal reflux disease without esophagitis; R10.13 Epigastric pain; K44.9 Diaphragmatic hernia without obstruction or gangrene; K29.70 Gastritis, unspecified, without bleeding; R13.10 Dysphagia, unspecified; E66.9 Obesity, unspecified; Z68.36 Body mass index [BMI] 36.0-36.9, adult; Z87.891 Personal history of nicotine dependence
CPT/HCPCS: 43239; 45378; 81025; J7120